=== PATIENT | male | born 1990 | race Caucasian/White ===

== ENCOUNTER 2016-12-14 23:29 | Emergency (ER) | payer OTHER ==
[~2016-12-14] VITALS: Ht 167.6 cm; Wt 101.0 kg
[2016-12-14 23:39] VITALS: Ht 167.6 cm; Wt 101.0 kg
--- NOTE | 2016-12-15 01:58 | RADRPT ---
PROCEDURE: CT BRAIN WITHOUT CONTRAST CLINICAL INDICATION: 26-year-old male with left-sided numbness. TECHNIQUE: The study was performed utilizing a GE Histrospeed VCT 64-slice CT scanner. Direct axia l sections were obtained from the foramen magnum to the vertex without the use of intravenous contra st material. Sagittal and coronal reformations were obtained. One or more the following dose reduct ion techniques were utilized: automated exposure control, adjustment of the mA and/or kV according t o patient's size or use of iterative reconstruction technique. The images were viewed on a PACS [employer]. CTD/vol = 45.0 mGy; Total Exam DLP = 810.3 mGy-cm. COMPARISON: None. FINDINGS: The ventricles have a normal size, shape and position. There is no evidence for mass effect or midl ine shift. There are no intracranial areas of abnormal attenuation. There is no evidence for acute intra or extra-axial blood. The bony calvarium is intact. The partially visualized paranasal sinuse s and mastoid air cells are without significant abnormal soft tissue. IMPRESSION: Unremarkable noncontrast CT scan of the brain. .Braxton Green MD, Date Time Electronically viewed and signed by .Braxton Green MD, on 12/15/2016 01:58 .Faride[facility]/
[2016-12-15 02:27] VITALS: BP 122/73; PULSE 66; RESP 20
--- NOTE | 2016-12-15 03:06 | ERD ---
ER Documentation Chief Complaint Date/Time DATE: 12/15/16 TIME: 03:04 Chief Complaint left arm numbness x 1 day, nausea HPI This is a 26-year-old male presenting to the emergency department stating that he feels numbness and tingling from the left side of his scalp all the way down to his feet for the past 4 hours. Patient denies any fevers, focal weakness, chest pain, shortness of breath, abdominal pain, headache. Patient denies any blurry vision. He states that he does have a little mild nausea. He denies any history of anxiety. Denies drug use or any taking any medications for this. ROS All systems reviewed and are negative except as per history of present illness. Allergies Allergies: Coded Allergies: No Known Allergy (Unverified , 12/14/16) PMhx/Soc Medical and Surgical Hx: pt denies Medical Hx, pt denies Surgical Hx History of Surgery: No Anesthesia Reaction: No Hx Neurological Disorder: No Hx Respiratory Disorders: No Hx Cardiac Disorders: No Hx Psychiatric Problems: No Hx Miscellaneous Medical Probl: No Hx Alcohol Use: No Hx Substance Use: No Hx Tobacco Use: Yes Smoking Status: Current every day smoker Physical Exam Vitals Vital Signs Date Time Temp Pulse Resp B/P Pulse Ox O2 Delivery O2 Flow Rate FiO2 12/15/16 02:27 66 20 122/73 100 Room Air 12/14/16 23:39 98.3 78 20 129/76 98 Physical Exam GENERAL: well-developed/well-nourished, in no apparent distress, non-toxic appearing HENT: NC/AT, bilateral tympanic membrane is normal with good cone of light, nares patent, oropharynx clear without exudates EYES: Conjunctiva normal, PERRLA, EOMI, no nystagmus noted NECK: Supple, no lymphadenopathy PULM: CTA bilaterally, no rales, rhonchi, or wheezing heard CV: Normal S1S2, RRR, good capillary refill GI: Soft, non-distended, normal bowel sounds, non-tender BACK: No midline tenderness, no masses, No CVAT EXT: No clubbing, cyanosis, or edema NEURO: Alert and orientated to person, place, and time. CN II-IIX intact. Gait and coordination were normal. 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 On examination, patient had a normal neurologic exam. He had normal vital signs. He is well-appearing he had equal strength on both extremities. I have discussed this case with my supervising physician Dr. Lara who also agreed that this is unlikely that this can be a stroke. A CT scan of the head was done and did not show any evidence of mass or hemorrhage. I have discussed the patient that it is best that he follows up with a neurologist in the next day. I discussed with him to return to the ER for any worsening signs or symptoms. Patient understands and agrees this plan. Patient is neurovascular intact to be discharged Departure Diagnosis: Primary Impression: Numbness and tingling Condition: Stable Patient Instructions: Numbness Additional Instructions: Visite a young mdico maana para un EXAMEN.Regrese a estas instalaciones si no se mejora jeff esperbamos o jeff le dijimos.Specialist:Usted tiene aleksander condicin m dica que requiere que toby a un especialista dentro de los prximos 1 da.POR FAVOR,CON YOUNG SEGUIMIENTO DE PRIMARIA PHSICIAN refferal. SI USTED NO TIENE UN M DICO GENERAL Y / O USTED NO PUEDE PAGAR jerald a un mdico,los siguientes luis RECURSOS sido suministrado a usted. ES YOUNG RESPONSABILIDAD PARA SER VISTOS POR EL ESPECIALISTA: Regrese a estas instalaciones si no se mejora jeff esperbamos o jeff le dijimos. NATHANIEL CHAN PA-C Dec 15, 2016 03:06
== END 2016-12-15 02:29 | disposition home or self-care (01) ==
LOC: FTE 23:29
DX: R20.0 Anesthesia of skin (principal); R20.2 Paresthesia of skin; F17.210 Nicotine dependence, cigarettes, uncomplicated
CPT/HCPCS: 70450; Z7502